=== PATIENT | female | born 1940 | race Caucasian/White ===

== ENCOUNTER → 2018-06-06 | Outpatient (CLI) | payer MEDICARE, BC, OTHER | LOC: M.RAD 10:07 | DX: Z12.31 Encounter for screening mammogram for malignant neoplasm of breast (principal) ==

== ENCOUNTER → 2018-08-18 | Outpatient (CLI) | payer MEDICARE, BC, OTHER | LOC: M.ULTRA 14:28 | DX: R22.41 Localized swelling, mass and lump, right lower limb (principal) ==

== ENCOUNTER → 2018-10-20 | Outpatient (CLI) | payer MEDICARE, BC, OTHER ==
[2018-10-20 15:44] LABS: CREATININE 1.5 mg/dL (0.6-1.3)
== END ==
LOC: M.LAB 15:04 → M.MRI 16:30
PROVIDERS: Family Medicine
DX: R60.0 Localized edema (principal)

== ENCOUNTER → 2019-05-17 | Outpatient (CLI) | payer MEDICARE, BC, OTHER | LOC: M.CT 14:55 | DX: K42.9 Umbilical hernia without obstruction or gangrene (principal) ==

== ENCOUNTER 2019-05-25 15:00 | Emergency (ER) | payer MEDICARE, BC, OTHER ==
[~2019-05-25] VITALS: Ht 165.1 cm; Wt 60.8 kg
[2019-05-25] MEDS ORDERED: UNICOMPLEX M TA1 TA1 PO (15:18)
[2019-05-25] MEDS ORDERED: VITAMIN D1000 UNI1 PO (15:18)
[2019-05-25] MEDS ORDERED: FISH OIL 1,001000 M2 PO (15:18)
[2019-05-25] MEDS ORDERED: DOXYCYCLINE 10100 MG PO (15:18)
[2019-05-25] MEDS ORDERED: TRAMADOL 50 MG50 MG PO (15:18)
[2019-05-25] MEDS ORDERED: ASPIR 8181 MG PO (15:19)
[2019-05-25 16:08] LABS: ABSOLUTE MONOCYTES 1.1 thou/uL (0.0-1.2); ABSOLUTE NEUTROPHILS 5.1 thou/uL (1.6-8.1); BASOPHILS 0.4 %; EOSINOPHILS 0.1 %; HEMATOCRIT 29.1 % (37.0-47.0); HEMOGLOBIN 10.1 gm/dL (12.0-15.0); LYMPHOCYTES 23.8 %; MCH 30.3 pg (26.0-34.0); MCHC 34.7 g/dL (28.0-37.0); MCV 87.3 fL (80.0-100.0); MONOCYTES 13.3 %; NUCLEATED RBCS 0 /100WBC; PLATELET COUNT* 493 thou/uL (150-400); POLYS 62.4 %; RBC 3.33 mil/uL (4.20-5.00); RDW-CV 14.4 % (10.5-14.5); WBC 8.3 thou/uL (4.0-11.0)
[2019-05-25 16:27] LABS: ANION GAP 7 mmol/L (7-16); BUN 17 mg/dL (7-18); CALCIUM 8.7 mg/dL (8.5-10.1); CHLORIDE 99 mmol/L (98-107); CO2 28 mmol/L (21-32); CREATININE 1.2 mg/dL (0.6-1.3); GLUCOSE 150 mg/dL (70-99); POTASSIUM 3.7 mmol/L (3.5-5.1); SODIUM 134 mmol/L (136-145)
[2019-05-25 16:31] LABS: ALBUMIN 2.7 g/dL (3.4-5.0); ALKALINE PHOSPHATASE 551 U/L (46-116); SGOT 159 U/L (15-37); SGPT 180 U/L (30-65); TOTAL BILIRUBIN 0.9 mg/dL (<0.1-1.0); TOTAL PROTEIN 7.4 g/dL (6.4-8.2); TROPONIN-I LEVEL <0.06 ng/mL (<0.06)
[2019-05-25] MEDS ORDERED: NORCO 5-325 TA1 EAC1 PO (17:43)
[2019-05-25 18:58] VITALS: BP 137/65
--- NOTE | 2019-05-26 12:40 | EKG ---
[place] [address] ELECTROCARDIOGRAM REPORT Name: DEMARIONICOLETTEPJ [id number] Admission: 05/25/19 Attend Phys: Discharge: 05/25/19 Date of : 42 Report #: [id number] THIS REPORT FOR: //name// [facility] ED Test Date: 2019-05-25 Test Time: 15:52:58 Pat Name: NICOLETTE HANKS Department: Room: Gender: F [employer]: EV : 1940 Requested By: Adela Scott Order Number: [id number] MD: Mian Roberts Measurements Intervals [place] Rate: 97 P: 65 VA: 150 QRS: 46 QRSD: 84 T: 37 QT: 359 QTc: 456 Interpretive Statements Sinus rhythm Probable left atrial enlargement Left ventricular hypertrophy No previous ECG available for comparison Electronically Signed On 05-26-2019 12:39:53 CDT by Mian Roberts [email or web address] <ELECTRONICALLY SIGNED> By: Mian Roberts MD, [facility] 05/26/19 1239 [id number] 1552 Mian Roberts MD, FACC /EPI
== END 2019-05-25 18:55 | disposition home or self-care (01) ==
LOC: M.ERS 15:00
PROVIDERS: Nurse Practitioner Family
DX: S22.31XA Fracture of one rib, right side, initial encounter for closed fracture (principal); M54.2 Cervicalgia; G89.29 Other chronic pain; R73.9 Hyperglycemia, unspecified; R94.5 Abnormal results of liver function studies; M19.90 Unspecified osteoarthritis, unspecified site; I89.0 Lymphedema, not elsewhere classified; Z88.0 Allergy status to penicillin; X58.XXXA Exposure to other specified factors, initial encounter; Y93.89 Activity, other specified; Y92.89 Other specified places as the place of occurrence of the external cause; Y99.8 Other external cause status

== ENCOUNTER → 2019-06-19 | Outpatient (CLI) | payer MEDICARE, BC, OTHER ==
[~2019-06-19] MED LIST: ASPIR 8181 MG PO; DOXYCYCLINE 10100 MG PO; FISH OIL 1,001000 M2 PO; NORCO 5-325 TA1 EAC1 PO; TRAMADOL 50 MG50 MG PO; UNICOMPLEX M TA1 TA1 PO; VITAMIN D1000 UNI1 PO
[2019-06-19 14:59] LABS: ABSOLUTE BASOPHILS 0.1 thou/uL (0.0-0.2); ABSOLUTE EOSINOPHILS 0.1 thou/uL (0.0-0.7); ABSOLUTE LYMPHOCYTES 1.9 thou/uL (0.8-5.3); ABSOLUTE MONOCYTES 0.5 thou/uL (0.0-1.2); ABSOLUTE NEUTROPHILS 6.2 thou/uL (1.6-8.1); BASOPHILS 0.6 %; EOSINOPHILS 0.9 %; HEMATOCRIT 30.8 % (37.0-47.0); HEMOGLOBIN 10.6 gm/dL (12.0-15.0); LYMPHOCYTES 21.7 %; MCHC 34.5 g/dL (28.0-37.0); MCV 86.9 fL (80.0-100.0); MONOCYTES 5.7 %; MPV 7.4 fl. (7.2-11.1); NUCLEATED RBCS 0 /100WBC; PLATELET COUNT* 429 thou/uL (150-400); POLYS 71.1 %; RBC 3.55 mil/uL (4.20-5.00); RDW-CV 14.7 % (10.5-14.5); WBC 8.7 thou/uL (4.0-11.0)
[2019-06-19 15:06] LABS: CALCIUM 9.7 mg/dL (8.5-10.1); CREATININE 1.1 mg/dL (0.6-1.3); PHOSPHORUS* 3.4 mg/dL (2.5-4.9)
[2019-06-19 15:18] LABS: CALCIUM 9.7 mg/dL (8.5-10.1); CREATININE 1.1 mg/dL (0.6-1.3); PHOSPHORUS* 3.6 mg/dL (2.5-4.9)
[2019-06-20 02:06] LABS: IgA 249 mg/dL (64-422); IgG 1247 mg/dL (700-1600); IgM 133 mg/dL (26-217)
[2019-06-20 15:10] LABS: KAPPA FREE LIGHT CHAINS 36.1 mg/L (3.3-19.4); LAMBDA FREE LIGHT CHAINS 20.5 mg/L (5.7-26.3)
== END ==
LOC: M.LAB 14:31
PROVIDERS: Internal Medicine
DX: N17.9 Acute kidney failure, unspecified (principal)

== ENCOUNTER → 2019-06-22 | Outpatient (CLI) | payer MEDICARE, BC, OTHER | LOC: M.ULTRA 12:52 | DX: N17.9 Acute kidney failure, unspecified (principal) ==

== ENCOUNTER → 2019-08-14 | Outpatient (CLI) | payer MEDICARE, BC, OTHER ==
[2019-08-14 15:40] LABS: CALCIUM 9.7 mg/dL (8.5-10.1); CREATININE 0.9 mg/dL (0.6-1.3); POTASSIUM 3.8 mmol/L (3.5-5.1)
== END ==
LOC: M.RAD 14:25
PROVIDERS: Nurse Practitioner Family
DX: Z12.31 Encounter for screening mammogram for malignant neoplasm of breast (principal); N17.9 Acute kidney failure, unspecified

== ENCOUNTER → 2020-03-28 | Outpatient (CLI) | payer MEDICARE, BC ==
[2020-03-28 10:16] LABS: POTASSIUM 4.3 mmol/L (3.5-5.1)
[2020-03-28 10:21] LABS: CALCIUM 8.5 mg/dL (8.5-10.1)
== END ==
LOC: M.LAB 09:17
PROVIDERS: ATTEND Nurse Practitioner Family
DX: N17.9 Acute kidney failure, unspecified (principal)

== ENCOUNTER → 2020-11-06 | Outpatient (CLI) | payer MEDICARE, BC | LOC: M.RAD 11:37 | PROVIDERS: ATTEND Family Medicine | DX: Z12.31 Encounter for screening mammogram for malignant neoplasm of breast (principal) ==